=== PATIENT | male | born 1975 | race Caucasian/White ===

== ENCOUNTER 2018-07-29 14:43 | Emergency (ER) | payer MEDICAID ==
[~2018-07-29] VITALS: Ht 175.3 cm; Wt 91.1 kg
[2018-07-29 14:51] VITALS: BP 156/101
[2018-07-29] MEDS ORDERED: DEXAMETHASONE 4 MG TABLET ONE (15:13)
[2018-07-29] MEDS ORDERED: DEXAMETHASONE 4 MG TABLET PO ONE (15:30)
== END 2018-07-29 15:26 | disposition home or self-care (01) ==
LOC: ED 15:15
DX: J02.9 Acute pharyngitis, unspecified (principal); H65.01 Acute serous otitis media, right ear; F17.200 Nicotine dependence, unspecified, uncomplicated
CPT/HCPCS: 99283